=== PATIENT | male | born 1960 | race Caucasian/White ===

== ENCOUNTER 2019-11-30 15:57 | Day surgery (SDC) | payer OTHER ==
[~2019-11-30] VITALS: Ht 177.8 cm; Wt 129.0 kg
--- NOTE | 2019-11-30 16:48 | NUR ---
Patient to room from admissions via wheel chair. Rates pain in low back 01/09 describes as an ache. Says he was in the ER last for pain and told he had a kidney stone. Was started on Flomax and an antibiotic. Seen urology on Thursday and they decided to give it a couple days to see if stone would pass. Patient followed up with urology today due to stone not passing and patient having a constant pain.
[2019-11-30 16:52] VITALS: BP 142/75; PULSE 88; TEMP 98.5
[2019-11-30] MEDS ORDERED: FLOMAX 0.40.4 MG/CAP PO (17:05)
[2019-11-30] MEDS ORDERED: LEVAQUIN 5500 MG/TA1 PO (17:06)
[2019-11-30] MEDS ORDERED: MICARDIS40 MG PO (17:07)
[2019-11-30] MEDS ORDERED: ZYRTEC 10MG10 MG PO (17:07)
[2019-11-30] MEDS ORDERED: LIPITOR 40MG TA40 MG PO (17:08)
[2019-11-30] MEDS ORDERED: CELEBREX 1100 MG/CAP PO (17:08)
[2019-11-30] MEDS ORDERED: RT ADVAIR 528 DISKUS IH (17:09)
--- NOTE | 2019-11-30 17:29 | NUR ---
Reviewed Morphine GOAL UMPIRE with the patient. Morphine GOAL UMPIRE connected at this time.
--- NOTE | 2019-11-30 18:23 | NUR ---
Patient explains that at this time he is having "very minimal" pain. Ambulates to bathroom. Voids clear yellow urine. Urine strained, no stones. Patient returns to bed. Denies further needs at this time.
[2019-11-30 19:52] VITALS: BP 144/75; PULSE 97; TEMP 98.7
--- NOTE | 2019-11-30 19:58 | NUR ---
Resting in bed. Assessment complete. Lungs clear. Heart sounds normal. Bowels active x4. Pulses strong throughout. No edema noted. IV left hand infusing without complications. Reports 02/09, reminded to use [facility]EN[facility] ADMIN button. Denies other needs at this time. Call light in reach.
--- NOTE | 2019-11-30 20:37 | NUR ---
Report given to SANTOS Taylor
[2019-12-01] VITALS (13 sets, daily range): BP systolic 122–142; BP diastolic 59–79; PULSE 81–97; TEMP 97.4–99
--- NOTE | 2019-12-01 08:00 | NUR ---
Patient resting in bed, REAL ESTATE CLOSER IN PLACE. Patient denies pain or needs, call light within reach.
--- NOTE | 2019-12-01 14:13 | NUR ---
Initial visit; Patient thanked Machine Sole Leveler for looking in on him and offering spirotual care.
--- NOTE | 2019-12-01 14:35 | NUR ---
Shot Peen Operator met with patient to discuss discharge planning. Patient lives alone in [place]. Patient states he receives primary care and obtains medications from [facility]. Patient uses a CPAP at home and no other DME. Patient is independent with ADLS. Patient does not have Advance Directives and is not interested in setting them up at this time. Patient plans to return home upon discharge and has transportation arranged.
--- NOTE | 2019-12-01 18:00 | NUR ---
Patient arrived to floor from PACU via bed. Patient is alert and oriented. Post op checks initiated. Patient denies pain or needs at this time, call light within reach.
--- NOTE | 2019-12-01 19:45 | NUR ---
Dr. Lara notified of pt. status, Ok for pt. to stay the night.
--- NOTE | 2019-12-01 20:45 | NUR ---
Pt. sitting up in bed watching TV at this time. Pt. is A&OX3, assessment complete. INT to lt. hand patent. Pt. denies pain or other needs at this time. Call light within reach.
[2019-12-02 07:54] VITALS: BP 137/64; PULSE 109; TEMP 98.1
--- NOTE | 2019-12-02 09:15 | NUR ---
Contacted Vickey MORENO, patient would like to discharge this AM, has orders from last night. Ok to discharge.
--- NOTE | 2019-12-02 09:50 | NUR ---
Patient sitting up in bed. Alert and oriented x 3. Assessment complete. Patient denies pain at this time. Denies further needs at this time.
--- NOTE | 2019-12-02 10:05 | NUR ---
Discharge education provided to patient. Educated on when to call provider and increasing fluid intake. All questions answered. INT to left hand discontinued. Catheter tip intact. Denies further needs at this time. Patient ambulated out with surgical staff.
== END 2019-12-02 10:05 | disposition home or self-care (01) ==
LOC: SDCO 15:57 → SURG 15:57 → SDCO 12-02 10:05
DX: N20.1 Calculus of ureter (principal); I10 Essential (primary) hypertension; E78.00 Pure hypercholesterolemia, unspecified; Z79.899 Other long term (current) drug therapy
CPT/HCPCS: OP; C1769; C2617; J0690; J1100; J1885; J2270; J2405; J2704; J3010; J7030; Q9967